=== PATIENT | female | born 1950 | race Caucasian/White ===

== ENCOUNTER 2018-08-02 06:43 | Inpatient (IN) | payer MEDICARE ==
[2018-08-02 07:30] LABS: Actual Bicarbonate (HCO3a) 23.5 mEq/L (22-28); Analyzer IN Cardio ER; Base Excess (BEa) -1.8 mEq/L (-2.0 to +3.0); CO2 Tension 42.1 mmHg (35.0-45.0); Calcium, Ionized 1.06 mmol/L (1.12-1.30); Carboxyhemoglobin (COHb) 0.7 gm% (0.0-3.0); Hemoglobin (Hb) 13.3 g/dL (12.0-16.0); O2 Tension (PaO2) 71.7 mmHg (> 80.0); Potassium - ABG Lab 3.09 mmol/L (3.70-5.30); Puncture Site LR; pH, Arterial 7.37 (7.35-7.45)
[2018-08-02 07:31] LABS: ALV-art Gradient 89.575 (0-20)
[2018-08-02] MEDS ORDERED: Furosemide 40 MG/4 ML VIAL ONE (07:52)
[2018-08-02] MEDS ORDERED: Aspirin Chewable 81 MG TAB ONE (07:52)
--- NOTE | 2018-08-02 08:52 | PDOC.FPRHP ---
- History of Present Illness Chief Complaint: Dyspnea History of Present Illness: Mrs. Candelaria presents for acute worsening of dyspnea starting yesterday She reports about 1 month of dyspnea worse with exertion, she also reports orthopnea and a non-productive cough. She denies any chest pain, palpitations, visual changes, syncope, or headache. She does not have a known history of heart disease. She reports a stress test and echo in the distant past that possibly indicated she had valve malfunction. She does smoke and has been told she has COPD but takes no inhalers and requires no O2. She has no known hx of blood clots, has not been immobile for any long period of time recently. no sick contacts or fever at home ED Course: CBC, CMP, CXR, Trop outside ER KCl given, placed on bipap, txferd here. Asa and furosemide given - Allergies/Adverse Reactions Allergies Allergy/AdvReac Type Severity Reaction Status Date / Time Jcdivjn-Glk-Qnj Reductase Allergy Verified 08/02/18 11:10 Inhibitor - Home Medications Medication Instructions Recorded Confirmed Type Cinnamon Bark [Cinnamon] 2,000 mg PO DAILY 06/21/14 12/23/14 History FLUoxetine HCl [Prozac] 40 mg PO DAILY 06/21/14 08/02/18 History HYDROcodone Bit/APAP 10/325 [[place]] 2 tab PO Q6HR PRN 06/21/14 12/23/14 History Hydrochlorothiazide 25 mg PO DAILY 06/21/14 12/23/14 History Lactobacillus 3/Fos/Pantethine 1 cap PO DAILY 06/21/14 12/23/14 History [Probiotic & Acidophilus Capsule] Lisinopril 20 mg PO DAILY 06/21/14 08/02/18 History Metoprolol Tartrate [Lopressor] 100 mg PO DAILY 06/21/14 12/23/14 History metFORMIN [Glucophage] 500 mg PO QAM-WM 06/21/14 08/02/18 History sitaGLIPtin Phosphate [Januvia] 25 mg PO DAILY 06/21/14 12/23/14 History Aspirin Chewable 81 mg PO DAILY 12/28/14 08/02/18 History Ciprofloxacin [Cipro] 500 mg PO BID 12/28/14 12/28/14 History Sulfamethoxazole/Trimethoprim 1 tab PO BID 12/28/14 12/28/14 History [Bactrim DS] Metoprolol Tartrate 25 mg PO ONE 08/02/18 08/02/18 History - History PMHx: HTN, DMII PSHx: Ovarian resection, associated hernia FHx: NC Social: 40+pk year smoking history, occ ETOH, no IV drugs - Review of Systems General: denies: fever/chills, weight/appetite/sleep changes Eyes: denies: eye pain, vision changes ENT: denies: rhinorrhea Respiratory: reports: cough, shortness of breath, exercise intolerance. denies : congestion Cardiovascular: reports: edema, orthopnea. denies: chest pain, palpitation, paroxysmal nocturnal dyspnea Gastrointestinal: reports: abdominal pain. denies: nausea, vomiting, diarrhea Genitourinary: denies: incontinence, dysuria Skin: denies: rashes, lesions Musculoskeletal: denies: pain, tenderness Neurological: reports: numbness. denies: syncope, weakness - Vital signs 118/77, Pulse: 124, Resp: 24, Temp: 98.1 (Oral), Pain: 0, O2 sat: 94 on Bipap - Physical Exam Constitutional: NAD HEENT: normocephalic and atraumatic, grossly normal vision, grossly normal hearing, MMM Neck: trachea midline Chest: no-tender to palpation, no lesions Heart: normal S1/S2, no murmurs/rubs/gallops, pulses present (tachycardia, edema present) Lungs: CTAB, no respiratory distress, good air movement, other (on bipap during exam) Abdomen: soft, non-tender, bowel sounds present, no masses/distention Musculoskeletal: normal structure, normal tone Neurological: no focal deficit Skin: no rash/lesions Psychiatric: normal mood and affect FMR H&P: Results - Labs Lab results: ABG pH 7.37 (7.35-7.45) 08/02/18 07:25 ABG pCO2 42.1 mmHg (35.0-45.0) 08/02/18 07:25 ABG pO2 71.7 mmHg (> 80.0) 08/02/18 07:25 FMR H&P: A/P - Problem List (1) Acute respiratory failure with hypoxia Current Visit: Yes Status: Acute Code(s): J96.01 - ACUTE RESPIRATORY FAILURE WITH HYPOXIA (2) Elevated brain natriuretic peptide (BNP) level Current Visit: Yes Status: Acute Code(s): R79.89 - OTHER SPECIFIED ABNORMAL FINDINGS OF BLOOD CHEMISTRY (3) Hypokalemia Current Visit: Yes Status: Acute Code(s): E87.6 - HYPOKALEMIA (4) HTN (hypertension) Current Visit: Yes Status: Acute Code(s): I10 - ESSENTIAL (PRIMARY) HYPERTENSION (5) DMII (diabetes mellitus, type 2) Current Visit: Yes Status: Acute (6) Transaminitis Current Visit: Yes Status: Acute Code(s): R74.0 - NONSPEC ELEV OF LEVELS OF TRANSAMNS & LACTIC ACID DEHYDRGNSE - Plan Acute hypoxic respiratory failure - tachycardia, tachypnea and hypoxia on presentation requiring BiPAP - normal WBC, afebrile, little concern for acute infection, most likely CHF exac w/ elevated bnp and cxr findings - consider PE, CTA to r/o, repeat EKG - continue respiratory support as needed, admit to IMCU - monitor ABG, Echo pending - IV lasix BID Transaminitis - consider cardiac hepatitis 2/2 volume overload - Hepatitis panel and RUQ pending DMII - continue home meds - mild SSI HTN - continue home meds - hydralazine for SBP>180 code: full PCP: OOT ppx: lovenox Dispo: admit to imcu for respiratory support, diurese. FMR H&P: Upper Level - Pertinent history 67F presents with 1 day of SOB. Started last night, has been constant. Symptom is exacerbated when laying flat, improved when she sat up. She tried an albuterol inhaler without improvement. Denies fever, chills, chest pain, nausea. Was worsening so she was seen in outside ER. There she had xray concerning for pulm congestion, elevated BNP. She was called a COPD exacerbation due to her smoking history, given solumedrol, normal saline, magnesium and potassium due to hypokalemia. She was transferred to this facility for further care. She was found to be tachycardic during this ER stay and outside ER stay, so a CTA was ordered and pending. She was given Lasix and aspirin here. She is currently on bipap and states she feels well. PE: Constitutional: On bipap, sitting up, well developed female. Animated talker HEENT:Normocephalic, wearing bipap, hearing and vision grossly intact, midline trachea CV: Regular, tachycardic, no obvious m/g/r Resp: No wheezes, good air movement. Faint crackles. No retraction or labored breathing. GI: Soft, normoactive, no pain on palpation Ext: 1+ pitting edema in both leg bilaterally to midshin A/P 1. Acute on chronic hypoxic respiratory failure - Etiologies include PE and CHF as most likely. - Patient been tachy, hypoxic with sudden onset. Has hx of malignancy. Plan, obtain d-dimer. - Xray and BNP suggest CHF. Will start on Lasix, obtain echo, consult card as this is apparently first CHF exacerbation. - At this time, not likely pneumonia. No fever, elevated WBC and sudden onset. Unlikely COPD at this time. No wheezes heard on exam. - Dispo, IMCU for continued bipap treatment. Wean as appropriate. 2. Elevated liver function - New issue noted today. Patient is asymptomatic. - Etiology includes congestion from CHF, viral, fatty liver, alcoholic liver. - Plan, obtain hepatitis panel, RUQ US 3. Tobacco abuse - Discuss cessation - Follow up with pcp for continued care. 4. Hypokalemia - K of 2.8. Unknown source right at this time. - Will start on 40 mEq potassium - Recheck CMP tomorrow. See international relations professor noted for chronic problem management. - Plan Date/Time: 08/02/18 0850 I, [], have evaluated this patient and agree with findings/plan as outlined by international relations professor resident. Pertinent changes/additions are listed here. Addendum - Attending - Attending Attestation Date/Time: 08/02/18 1019 I personally evaluated the patient and discussed the management with Dr. Bruno/ Eli at 0845 am. H&P repeated by me. I agree with the History, Examination, Assessment and Plan documented above with any addition or exceptions noted below. HR 120-130s, sinus, temp afebrile, O2 sat 98% on bipap, BP 124/76 Gen:A&Ox3, mild resp distress on bipap. is speaking in full sentences CV: tachycardia Lungs: crackles at bases. No wheezes or rhonchi Ext: 1+ pitting edema Labs and imaging reviewed. Acute hypoxic respiratory failure secondary to presumed CHF exac- BIPAP and to IMCU. Will check ECHO as new onset CHF. Lasix, strict I/Os, daily weights. Tachycardia- CTA done to r/o PE and it was negative. Most likely sinus tachy from heart failure. Will watch closely HTN- bp stable Elevated liver function- will check hepatitis panel and RUQ u/s. Most likely hepatic congestion from CHF. Hypokalemia-replace
[2018-08-02] MEDS ORDERED: Dextrose 50% Abboject 50 ML SYRINGE SLOW IVP PRN (09:33)
[2018-08-02] MEDS ORDERED: Dextrose 5% in Water 1,000 ML IV PRN (09:33)
[2018-08-02] MEDS ORDERED: HumaLOG 300 UNITS/3 ML VIAL SC PRN (09:33)
[2018-08-02] MEDS ORDERED: Ondansetron ODT 4 MG TAB PO PRN (09:33)
[2018-08-02] MEDS ORDERED: Ondansetron PF 4 MG/2 ML Vial IVP PRN (09:33)
[2018-08-02] MEDS ORDERED: Acetaminophen 325 MG TAB PO PRN (09:33)
--- NOTE | 2018-08-02 09:38 | CT ---
EXAM: CTA of the chest HISTORY: Shortness of breath COMPARISON: None TECHNIQUE: Multiple contiguous axial images were obtained a CTA of the chest with contrast per pulmon nilam embolism protocol. 3-D oblique MIP reformats and direct coronal reformats were performed. FINDINGS: HEART: Global cardiomegaly. Calcifications in the mitral and aortic valve. Coronary artery calcificat ions. PULMONARY ARTERIES: Normal in caliber without filling defects to suggest pulmonary emboli. MEDIASTINUM: No hilar or mediastinal lymphadenopathy. LUNGS: No focal infiltrates or masses. PLEURAL SPACE: Small bilateral pleural effusions with adjacent atelectasis CHEST WALL SOFT TISSUES: Unremarkable VISUALIZED OSSEOUS STRUCTURES: Degenerative changes in the spine. VISUALIZED SUBDIAPHRAGMATIC STRUCTURES: Unremarkable IMPRESSION: 1. No evidence of pulmonary thromboembolism 2. Small bilateral pleural effusions with adjacent atelectasis
[2018-08-02 10:05] LABS: Troponin I 0.043 ng/mL (< 0.028)
[2018-08-02 11:11] VITALS: BMI 29.5
[2018-08-02] MEDS ORDERED: Metoprolol Tartrate 25 MG TAB PO SCH (12:45)
--- NOTE | 2018-08-02 13:36 | ULT ---
US Gallbladder RUQ: 08/02/2018 9:41 AM CLINICAL HISTORY: Elevated LFTs. STUDY: Limited right upper quadrant ultrasound of abdomen. COMPARISON: None. FINDINGS: Liver: Size: Normal. Echogenicity: Normal. Contour: Smooth. Mass: None. Bile ducts: No intrahepatic or extrahepatic biliary dilatation. Common bile duct measures 7 mm. Thi s enlargement is likely a reservoir effect from prior cholecystectomy. Gallbladder: Removed Pancreas: Not well visualized Right kidney: No pelvicalyceal dilatation. Right kidney measuring 11.7 cm in length. IMPRESSION: Enlargement of the common bile duct is likely a reservoir effect from prior cholecystectomy.
[2018-08-02 13:57] LABS: HBSAg Index 0.29 S/CO (0-0.99); Hep B Surf Ag Non-Reactive S/CO (NonReactive); Hep C IgG Ab Non-Reactive (NonReactive); Hep C Index 0.06 S/CO (0-0.79)
[2018-08-02] MEDS ORDERED: Furosemide 20 MG/2 ML VIAL SLOW IVP SCH (14:00)
[2018-08-02 14:01] LABS: Troponin I 0.035 ng/mL (< 0.028)
[2018-08-02] MEDS ORDERED: predniSONE 20 MG TAB PO SCH (14:15)
--- NOTE | 2018-08-02 14:38 | CON ---
DATE OF CONSULTATION: 08/02/2018 SERVICE: Pulmonary Medicine. REASON FOR CONSULTATION: [facility] patient. HISTORY OF PRESENT ILLNESS: The patient is a 67-year-old white female with past medical history significant for a 45 pack-year history of smoking and hypertension with diabetes. She presented to the hospital. All of her problems started roughly 1 week ago. At that point, she noticed a tickle in her throat with a little bit of a cough. Over the last 2 days, she started having dyspnea with exertion. She first noticed it when she went to the [employer] and had a difficult time walking around. The attendants there suggested that she look very poor and needed to get home to get some rest. She took their advice, got some rest. That evening, she ended up waking up in the middle of night short of breath and choking. She presented to the emergency department because of dyspnea. She was wheezing severely. She got a dose of Lasix and a nebulized medication. After that dose of nebulized medication, her breathing immediately got better. She was transiently placed on BiPAP, but since the breathing treatment, she has had no need for it. She does not wear any oxygen at home, but required oxygen on presentation to the emergency department. At this point, she is talking in full sentences, and there is no complaints of dyspnea. PAST MEDICAL HISTORY: 1. Hypertension. 2. Dyslipidemia. 3. Type 2 diabetes mellitus. 4. Tobacco abuse. PAST SURGICAL HISTORY: Ovarian resection. FAMILY HISTORY: Noncontributory. SOCIAL HISTORY: She has a 45 pack-year history of smoking. Denies any alcohol or illicit drug use currently. She has no exposure to chemicals, dust, asbestos, or tuberculosis. ALLERGIES: NO KNOWN DRUG ALLERGIES. MEDICATIONS: List of her inpatient medications were reviewed. Couple of updates were made. REVIEW OF SYSTEMS: General; head, eyes, ears, nose, and throat; cardiovascular, respiratory, GI, , musculoskeletal, neurologic, and skin are negative, except as mentioned in the HPI. PHYSICAL EXAMINATION: VITAL SIGNS: Afebrile, pulse 125, blood pressure 119/86, respirations 25, saturation 96% on 0.5 L nasal cannula. GENERAL: The patient is awake and alert, in no apparent distress. LUNGS: There is decent air entry. There is slightly prolonged expiratory phase. Currently, I do not appreciate any wheezing. There are also no crackles there now. HEART: Normal rate and regular. ABDOMEN: Soft, nontender, nondistended. Bowel sounds are positive. MUSCULOSKELETAL: No cyanosis or clubbing. There is trace pitting in the bilateral lower extremities. NEUROLOGIC: Grossly nonfocal. LABORATORY DATA: PH of 7.37, pCO2 of 42, pO2 of 71. At that time, she was on BiPAP. Troponin is marginally elevated. WBC 11.4, hemoglobin 12.8, and platelets 259,000. Basic metabolic profile is otherwise unremarkable. Potassium 2.8. Otherwise basic metabolic profile is unremarkable. AST and ALT are elevated. BNP 493. IMAGING STUDIES: CTA of the chest demonstrates bilateral pleural effusions, which are quite small. There is interstitial fullness. She has no consolidating or infiltrative lesions. There is no pulmonary embolism. Abdominal ultrasound demonstrates no acute abnormality. The common bile duct measures 7 mm, likely secondary to cholecystectomy. ASSESSMENT: 1. Acute bronchitis, suspect COPD. 2. Acute hypoxic respiratory failure. 3. Elevated BNP. DISCUSSION AND PLAN: We will check the synthetic function of the liver by obtaining an INR tomorrow morning. Total bilirubin is normal making liver dysfunction unlikely. I will get a urinalysis, excluding nephrotic range proteinuria. Agree with echocardiogram. For her mild bronchitis, put her on 5 days of low-dose prednisone. If she has any signs of sepsis, we could add an antibiotic. Respiratory virus panel will be obtained. At this point, she is stable for transition to the telemetry unit. 70 minutes have been devoted to this patient in various activities. I personally reviewed all imaging studies and laboratory data noted within this document. For fifty percent of this time, I was interacting with the patient at the bedside or coordinating care with the care team. For the remainder of the time I was immediately available to the patient in the hospital unit. Job ID: [id number] MTDD
[2018-08-02] MEDS: HYDROcodone/Acetaminophen 5/325 mg Tablet PO PRN (15:53)
[2018-08-02] MEDS ORDERED: ISOVUE-370 76%-LOCM 1 ML ONE (16:05)
[2018-08-02 18:01] LABS: Bilirubin Negative (Negative); Blood, Urine Negative (Negative); Clarity CLEAR (Clear); Glucose, Urine (Dipstick) Negative (Negative); Leukocyte Negative (Negative); Nitrite Negative (Negative); Protein, Urine (Dipstick) Negative (Neg-Trace); Specific Gravity, Urine 1.008 (1.002-1.036); Urobilinogen 0.2 mg/dL (0.2-1.0)
[2018-08-02 18:13] LABS: Amphetamine Not Detected (NotDetected); Barbiturates Screen Not Detected (NotDetected); Benzodiazepine Screen Not Detected (NotDetected); Cocaine Metabolite Screen Not Detected (NotDetected); Medtox Reader # READER 1; Methadone Not Detected (NotDetected); Methamphetamine Not Detected (NotDetected); Opiate Screen Detected (NotDetected); Oxycodone Screen Not Detected (NotDetected); Phencyclidine (PCP) Not Detected (NotDetected); THC/Cannabinoid Screen Not Detected (NotDetected); Tricyclic Screen Detected (NotDetected)
[2018-08-02 18:14] LABS: Medtox Control Line Valid? VALID (VALID)
[2018-08-02] MEDS: Metoprolol Tartrate 25 MG TAB PO SCH (20:12)
[2018-08-03] MEDS: HYDROcodone/Acetaminophen 5/325 mg Tablet PO PRN ×2 (04:05→16:54)
[2018-08-03 05:33] LABS: #Lymphocytes 1.5 thou/uL (1.20-3.40); #Monocytes 0.9 thou/uL (0.11-0.59); #Neutrophils 8.2 thou/uL (1.40-6.50); %Basophils 0.1 % (0.0-1.0); %Eosinophils 0.2 % (0.0-10.0); %Lymphocytes 14.2 % (21.0-51.0); %Monocytes 8.3 % (0.0-10.0); %Neutrophils 77.2 % (42.0-75.0); Hemoglobin 12.5 g/dL (12.0-16.0); Mean Corpuscular HGB CONC 32.5 g/dL (32.0-36.0); Mean Corpuscular Volume 98.5 fL (78.0-98.0); Mean Platelet Volume 6.8 fL (7.4-10.4); Platelet Count 269 thou/uL (130-400); RBC Distribution Width 12.4 % (11.5-14.5); White Blood Cell (WBC) Count 10.6 thou/uL (4.8-10.8)
[2018-08-03 05:41] LABS: Prothrombin Time 13.2 SEC (12.0-14.7)
[2018-08-03 06:09] LABS: ALT (SGPT) 121 U/L (8-55); AST (SGOT) 48 U/L (5-34); Albumin 3.8 g/dL (3.4-4.8); Alkaline Phosphatase 103 U/L (40-150); Anion Gap 11 mmol/L (10-20); BUN (Urea Nitrogen) 12 mg/dL (9.8-20.1); Bilirubin, Total 0.4 mg/dL (0.2-1.2); Calc. Creatinine Clearance 106 mL/min (70-130); Calcium 8.9 mg/dL (7.8-10.44); Carbon Dioxide 34 mmol/L (23-31); Chloride 98 mmol/L (98-107); Estimated GFR-MDRD 88; Glucose 127 mg/dL (80-115); Potassium 3.8 mmol/L (3.5-5.1); Protein, Total 6.8 g/dL (6.0-8.3); Sodium 139 mmol/L (136-145)
--- NOTE | 2018-08-03 06:46 | PDOC.FM ---
- Subjective Subjective: pt sitting comfortably on the side of her bed, enjoying breakfast, she reports her shortness of breath has improved. denies chest pain or dizziness. - Objective Vital Signs & Weight: Vital Signs (12 hours) Temp Pulse Resp Pulse Ox 08/03/18 06:37 94 L 08/03/18 06:35 114 H 17 94 L 08/03/18 03:00 98.0 F 08/03/18 00:24 114 H 18 94 L 08/02/18 23:04 97.7 F 08/02/18 20:00 94 L 08/02/18 19:00 98.5 F 08/02/18 18:44 123 H 18 94 L Weight Weight 80.428 kg Most Recent Monitor Data Heart Rate from ECG 117 NIBP 110/83 NIBP BP-Mean 92 Respiration from ECG 19 SpO2 90 I&O: 08/01/18 08/02/18 08/03/18 06:59 06:59 06:59 Intake Total 1350 Output Total 2800 Balance -1450 Result Diagrams: 08/03/18 05:23 08/03/18 05:23 Phys Exam - Physical Examination Constitutional: NAD HEENT: moist MMs Neck: full ROM crackles at base PILAR Gastrointestinal: no distention Musculoskeletal: no edema Neurological: moves all 4 limbs Psychiatric: normal affect Skin: no rash Dx/Plan (1) Acute respiratory failure with hypoxia Code(s): J96.01 - ACUTE RESPIRATORY FAILURE WITH HYPOXIA Status: Acute (2) Elevated brain natriuretic peptide (BNP) level Code(s): R79.89 - OTHER SPECIFIED ABNORMAL FINDINGS OF BLOOD CHEMISTRY Status : Acute (3) Hypokalemia Code(s): E87.6 - HYPOKALEMIA Status: Acute (4) HTN (hypertension) Code(s): I10 - ESSENTIAL (PRIMARY) HYPERTENSION Status: Acute (5) DMII (diabetes mellitus, type 2) Status: Acute (6) Transaminitis Code(s): R74.0 - NONSPEC ELEV OF LEVELS OF TRANSAMNS & LACTIC ACID DEHYDRGNSE Status: Acute - Plan Plan: Acute hypoxic respiratory failure - tachycardia, tachypnea and hypoxia on presentation requiring BiPAP - normal WBC, afebrile, little concern for acute infection, most likely CHF exac w/ elevated bnp and cxr findings, - requiring intermitent O2 via NC for 24 hrs, transfer to tele - Echo pending - consult cardiology, appreciate recs - IV lasix BID Transaminitis - consider hepatic congestion 2/2 volume overload - Hepatitis panel neg and RUQ neg for cirrhosis - AST/ALT downtrending DMII - continue home meds - mild SSI Sinus Tachycardia - EKG does not reveal afib or block, no ST changes - CTA neg - consider DCing metoprolol, beginning coreg HTN - continue home meds - hydralazine for SBP>180 code: full PCP: OOT ppx: lovenox Dispo: continue to diurese, control HR. Addendum - Attending - Attending Attestation Date/Time: 08/03/18 1032 I personally evaluated the patient and discussed the management with Dr. Bruno. I agree with the History, Examination, Assessment and Plan documented above with any addition or exceptions noted below. Patient here with acute hypoxic respiratory failure that is now improved. Suspected due to possible new onset HF. Echo pending, and cardiology consulted. She has been weaned down to 1L by SD and will continue to wean as tolerated. She is persistently tachycardic, which apparently is chronic in nature. Consider high output heart failure and dilated cardiomyopathy given this history but will await Echo report and Cardiology recs.
[2018-08-03] MEDS ORDERED: Enoxaparin Sodium 40 MG/0.4 ML SYRINGE SC SCH (09:00)
[2018-08-03] MEDS: metFORMIN 500 MG TAB PO SCH (09:35)
[2018-08-03] MEDS: predniSONE 20 MG TAB PO SCH (09:35)
[2018-08-03] MEDS: Furosemide 20 MG/2 ML VIAL SLOW IVP SCH (09:36)
[2018-08-03] MEDS: Aspirin Chewable 81 MG TAB PO SCH (09:36)
[2018-08-03] MEDS: Lisinopril 20 MG TAB PO SCH (09:36)
[2018-08-03] MEDS: FLUoxetine HCl 20 MG CAP PO SCH (09:36)
[2018-08-03] MEDS: Metoprolol Tartrate 25 MG TAB PO SCH (09:37)
--- NOTE | 2018-08-03 10:40 | PRG ---
DATE OF SERVICE: 08/03/2018 SUBJECTIVE: Stephany Candelaria this morning awake, alert, and responsive. She says she is feeling somewhat better. Less short of breath. OBJECTIVE: VITAL SIGNS: Sats are 96% on 1 L, pulse 120, blood pressure 98/73, respiratory rate 24. CHEST: Decreased breath sounds. No wheezing. CARDIAC: Normal S1 and S2. No gallops. ABDOMEN: No masses. LABORATORY DATA: Unremarkable. Liver function slightly elevated. CT chest shows no obvious infiltrates. IMPRESSION: 1. Chronic obstructive pulmonary disease, respiratory failure. 2. Congestive heart failure. PLAN: Continue present treatment. Await results of the echo. We want to consider input from Cardiology. Job ID: [id number]
--- NOTE | 2018-08-03 10:53 | CON ---
DATE OF CONSULTATION: REASON FOR CONSULTATION: Cardiomyopathy. HISTORY OF PRESENT ILLNESS: Ms. Candelaria is a 67-year-old woman, who has not been seen or evaluated by Cardiology recently. She presented with a 1-2 day history of acute onset shortness of breath. She has had lower extremity edema. She presented at an outlying emergency room, where she was found to be in congestive heart failure. She was given Lasix with improvement. She is currently resting comfortably. CARDIAC RISK FACTORS: Hypertension, hyperlipidemia, diabetes mellitus, tobacco use. SOCIAL HISTORY: As above. She is currently . ALLERGIES: NONE. REVIEW OF SYSTEMS: A 10-point review of systems is reviewed and as above, otherwise negative. HOME MEDICATIONS: Include: 1. Metoprolol. 2. Aspirin. 3. Metformin. 4. Lisinopril. 5. Prozac. 6. Januvia. 7. Bactrim. 8. Lopressor. 9. Probiotic. 10. Cipro. PHYSICAL EXAMINATION: GENERAL: Patient is a pleasant female who is in no acute distress. The patient appears their stated age. VITAL SIGNS: Blood pressure 98/73, pulse 96, temperature afebrile. NEUROLOGIC: The patient is alert and oriented x3 with no focal neurologic deficits. HEENT: Sclerae without icterus. Mouth has moist mucous membranes with normal pallor. NECK: No JVD. Carotid upstroke brisk. No bruits bilaterally. LUNGS: Crackles noted bilaterally. BACK: No scoliosis or kyphosis. CARDIAC: Regular rate and rhythm with normal S1 and S2. No S3 or S4 noted. No significant rubs, murmurs, thrills, or gallops noted throughout the precordium. PMI is not displaced. There is no parasternal heave. ABDOMEN: Soft, nontender, nondistended. No peritoneal signs present. No hepatosplenomegaly. No abnormal striae. EXTREMITIES: 2+ femoral and 2+ dorsalis pedis pulses. No cyanosis, clubbing, or edema. SKIN: No gross abnormalities. PERTINENT LABORATORY DATA: Hemoglobin 12.5, creatinine 0.67, peak troponin 0.043. AST, ALT 48/121. Echo with doppler shows LVEF 25% to 30%. IMPRESSION: 1. Acute systolic heart failure. 2. Tobacco abuse. 3. Diabetes mellitus. 4. Hypertension. RECOMMENDATIONS: Ms. Candelaria certainly has multiple risk factors for underlying coronary disease as described above. She is felt to be a high risk. At this point, recommend continuing Lasix therapy. We will also recommend proceeding with coronary angiography plus PCI, discussed in full detail with Ms. Candelaria. The risks included but not limited to the following: , stroke, ID, need for emergency surgery, loss of limb, bleeding, and infection, as well as a reaction to the dye causing kidney failure and needing long-term dialysis. Other risks include acute stent thrombosis and restenosis, vessel dissection, perforation, need for emergency surgery in addition to distal embolization causing chronic foot discomfort as well as amputation. All questions answered. I also discussed drug-coated and nondrug-coated stent placement. She states she can be compliant with Plavix over six months if needed. No surgeries planned, back injections could be compliant. No bleeding issues. We will proceed with a drug-coated stent if needed. I would recommend changing metoprolol to low-dose Coreg. Increase Lasix to 40 mg IV. Further recommendations pending the above. Job ID: [id number]
[2018-08-03] MEDS: HumaLOG 300 UNITS/3 ML VIAL SC PRN (11:19)
[2018-08-03] MEDS ORDERED: Furosemide 40 MG/4 ML VIAL IVP SCH (13:00)
[2018-08-03] MEDS: Carvedilol 3.125 MG TAB PO SCH (16:54)
[2018-08-04] MEDS ORDERED: Diltiazem 125 MG in Sodium Chloride 0.9% 100 ML IVPB SCH ×2 (05:15→08:30)
[2018-08-04] MEDS ORDERED: Metoprolol Tartrate 5 MG/5 ML VIAL IVP PRN (05:18)
[2018-08-04] MEDS ORDERED: Metoprolol Tartrate 5 MG/5 ML VIAL ONE (05:57)
[2018-08-04] MEDS ORDERED: Digoxin 0.5 MG/2 ML AMP SLOW IVP SCH (06:15)
[2018-08-04] MEDS ORDERED: Sodium Chloride 0.9% 1,000 ML IV SCH (06:45)
[2018-08-04] MEDS ORDERED: Communication Order-Pharmacy FS SCH (06:45)
[2018-08-04] MEDS: metFORMIN 500 MG TAB PO SCH ×2 (07:21→09:08)
--- NOTE | 2018-08-04 07:36 | PDOC.FM ---
- Subjective Subjective: pt resting comfortably in bed, reported afib w/ rvr overnight, asymptomatic. continues to deny chest pain, palpitations, or SOB. - Objective Vital Signs & Weight: Vital Signs (12 hours) Temp Pulse Resp BP BP Pulse Ox 08/04/18 07:26 119 H 20 96 08/04/18 07:16 98.6 F 122 H 18 129/85 96 08/04/18 06:16 126 H 08/04/18 03:13 98.5 F 126 H 19 121/86 92 L 08/03/18 23:24 123 H 20 08/03/18 19:53 98.4 F 102 H 18 107/63 93 L Weight Admit Weight 80.286 kg Weight 79.56 kg Most Recent Monitor Data Heart Rate from ECG 125 NIBP 100/53 NIBP BP-Mean 68 Respiration from ECG 20 SpO2 95 I&O: 08/03/18 08/04/18 08/05/18 06:59 06:59 06:59 Intake Total 1350 1200 Output Total 2800 Balance -1450 1200 Result Diagrams: 08/03/18 05:23 08/03/18 05:23 Phys Exam - Physical Examination Constitutional: NAD HEENT: moist MMs Neck: no JVD Respiratory: clear to auscultation bilateral Cardiovascular: no significant murmur, irregular (irregularly irregular ) Gastrointestinal: soft, non-tender Musculoskeletal: no edema, pulses present Neurological: moves all 4 limbs Psychiatric: normal affect Skin: no rash Dx/Plan (1) Acute respiratory failure with hypoxia Code(s): J96.01 - ACUTE RESPIRATORY FAILURE WITH HYPOXIA Status: Acute (2) Elevated brain natriuretic peptide (BNP) level Code(s): R79.89 - OTHER SPECIFIED ABNORMAL FINDINGS OF BLOOD CHEMISTRY Status : Acute (3) Hypokalemia Code(s): E87.6 - HYPOKALEMIA Status: Acute (4) HTN (hypertension) Code(s): I10 - ESSENTIAL (PRIMARY) HYPERTENSION Status: Acute (5) DMII (diabetes mellitus, type 2) Status: Acute (6) Transaminitis Code(s): R74.0 - NONSPEC ELEV OF LEVELS OF TRANSAMNS & LACTIC ACID DEHYDRGNSE Status: Acute - Plan Plan: Acute hypoxic respiratory failure - tachycardia, tachypnea and hypoxia on presentation requiring BiPAP - normal WBC, afebrile, little concern for acute infection, most likely CHF exac w/ elevated bnp and cxr findings, - requiring intermitent O2 via NC for 24 hrs, transfer to tele - Echo shows EF 25-30% - consult cardiology, appreciate recs - IV lasix BID, cath today Transaminitis - consider hepatic congestion 2/2 volume overload - Hepatitis panel neg and RUQ neg for cirrhosis - AST/ALT downtrending DMII - continue home meds - mild SSI Atrial fibrillation - w/ RVR overnight, possibly paroxysmal, no known history - CTA neg, Echo reveals dilated atria - increase coreg, IV dig for RVR - discuss OAC w/ pt after cath HTN - continue home meds - hydralazine for SBP>180 code: full PCP: [facility]ISA ppx: caleb Dispo: cath today Addendum - Attending - Attending Attestation Date/Time: 08/04/18 1101 I personally evaluated the patient and discussed the management with Dr. Bruno. I agree with the History, Examination, Assessment and Plan documented above with any addition or exceptions noted below. Patient here with now known diagnosis of CHFrEF and Afib. Echo shows poor EF and dilated LA. She is to undergo cath with cardiology at some point. Appreciate their recs. Continue diltiazem for Afib rate control at this time. Continue diuresis. Wean O2 as tolerated. Further mgmt per cath result and cardiology recs.
[2018-08-04] MEDS ORDERED: Heparin 10,000 UNITS/1 ML VIAL ONE (07:46)
[2018-08-04] MEDS ORDERED: Nitroglycerin 100MG/250ML BOT 0 ML ONE (07:46)
[2018-08-04] MEDS ORDERED: Heparin 0 ML ONE (07:46)
[2018-08-04] MEDS: Carvedilol 3.125 MG TAB PO SCH ×2 (08:54→16:40)
[2018-08-04] MEDS: Furosemide 20 MG/2 ML VIAL SLOW IVP SCH (08:55)
[2018-08-04] MEDS: FLUoxetine HCl 20 MG CAP PO SCH (08:55)
[2018-08-04] MEDS: predniSONE 20 MG TAB PO SCH (08:55)
[2018-08-04] MEDS: Furosemide 40 MG TAB PO SCH ×2 (08:55→13:17)
[2018-08-04] MEDS: Aspirin Chewable 81 MG TAB PO SCH (08:55)
[2018-08-04] MEDS: Lisinopril 20 MG TAB PO SCH (08:55)
[2018-08-04] MEDS: HYDROcodone/Acetaminophen 5/325 mg Tablet PO PRN (16:38)
--- NOTE | 2018-08-04 16:47 | EKG ---
Test Reason : Blood Pressure : / mmHG Vent. Rate : 129 BPM Atrial Rate : 067 BPM P-R Int : 000 ms QRS Dur : 084 ms QT Int : 392 ms P-R-T Axes : 000 066 090 degrees QTc Int : 574 ms Accelerated Junctional rhythm Abnormal ECG When compared with ECG of 23-DEC-2014 13:51, Junctional rhythm has replaced Sinus rhythm Vent. rate has increased BY 54 BPM Non-specific change in ST segment in Anterior leads T wave inversion no longer evident in Anterior leads Confirmed by DR. Jace BROWN ([id number]) on 08/04/2018 4:46:53 PM Referred By: MARNI Confirmed By:DR. Jace BROWN
[2018-08-04] MEDS: HumaLOG 300 UNITS/3 ML VIAL SC PRN (17:34)
[2018-08-04] MEDS ORDERED: Amiodarone 200 MG TAB PO SCH (21:00)
[2018-08-05] MEDS ORDERED: Diltiazem 125 MG in Sodium Chloride 0.9% 100 ML IVPB SCH ×2 (06:33→10:00)
--- NOTE | 2018-08-05 06:33 | PDOC.CTH ---
Cardiology Progress Note - Objective Vital Signs Temp Pulse Resp BP Pulse Ox 08/05/18 04:00 98.8 F 103 H 18 103/51 L 93 L 08/05/18 02:18 95 08/05/18 00:21 113 H 16 08/05/18 00:00 98.4 F 94 18 133/81 94 L 08/04/18 21:30 98.2 F 110 H 18 116/67 92 L 08/04/18 19:02 94 16 84 L Admit Weight 177 lb Weight 171 lb 1.6 oz 08/03/18 08/04/18 08/05/18 06:59 06:59 06:59 Intake Total 1350 1200 1900 Output Total 2800 Balance -1450 1200 1900 - Physical Examination General/Neuro: alert & oriented x3, NAD Neck: carotid US brisk, no JVD present Lungs: unlabored respirations Heart: RRR Abdomen: NT/ND, soft Extremities: + femoral B - Telemetry Telemetry Rhythm: sr - Labs Result Diagrams: 08/03/18 05:23 08/03/18 05:23 Troponin/CKMB Troponin I 0.035 ng/mL (< 0.028) H 08/02/18 13:09 - Assessment/Plan Afib Tachycardia Hyperthyroidism Initial plan was to proceed with angio Given hyperthyroidism, aggressively treat with BB Pt continues with tachycardia Concern over thyroid storm reported in past with use of contrast in the face ofhyperthyroidism lifevest
[2018-08-05] MEDS: FLUoxetine HCl 20 MG CAP PO SCH (06:35)
[2018-08-05] MEDS: predniSONE 20 MG TAB PO SCH (06:35)
[2018-08-05] MEDS: Aspirin Chewable 81 MG TAB PO SCH (06:36)
[2018-08-05] MEDS: Lisinopril 20 MG TAB PO SCH (06:36)
[2018-08-05] MEDS: Carvedilol 6.25 MG TAB PO SCH ×3 (06:39→20:01)
--- NOTE | 2018-08-05 07:00 | PDOC.FM ---
- Subjective Subjective: pt taken for cath this morning, no reported events overnight. - Objective Vital Signs & Weight: Vital Signs (12 hours) Temp Pulse Resp BP Pulse Ox 08/05/18 04:00 98.8 F 103 H 18 103/51 L 93 L 08/05/18 02:18 95 08/05/18 00:21 113 H 16 08/05/18 00:00 98.4 F 94 18 133/81 94 L 08/04/18 21:30 98.2 F 110 H 18 116/67 92 L 08/04/18 19:02 94 16 84 L Weight Admit Weight 80.286 kg Weight 77.61 kg Most Recent Monitor Data Heart Rate from ECG 125 NIBP 100/53 NIBP BP-Mean 68 Respiration from ECG 20 SpO2 95 I&O: 08/03/18 08/04/18 08/05/18 06:59 06:59 06:59 Intake Total 1350 1200 1900 Output Total 2800 Balance -1450 1200 1900 Result Diagrams: 08/03/18 05:23 08/03/18 05:23 Dx/Plan (1) Acute respiratory failure with hypoxia Code(s): J96.01 - ACUTE RESPIRATORY FAILURE WITH HYPOXIA Status: Acute (2) Elevated brain natriuretic peptide (BNP) level Code(s): R79.89 - OTHER SPECIFIED ABNORMAL FINDINGS OF BLOOD CHEMISTRY Status : Acute (3) Hypokalemia Code(s): E87.6 - HYPOKALEMIA Status: Acute (4) HTN (hypertension) Code(s): I10 - ESSENTIAL (PRIMARY) HYPERTENSION Status: Acute (5) DMII (diabetes mellitus, type 2) Status: Acute (6) Transaminitis Code(s): R74.0 - NONSPEC ELEV OF LEVELS OF TRANSAMNS & LACTIC ACID DEHYDRGNSE Status: Acute - Plan Plan: Acute hypoxic respiratory failure - tachycardia, tachypnea and hypoxia on presentation requiring BiPAP - normal WBC, afebrile, little concern for acute infection, most likely CHF exac w/ elevated bnp and cxr findings - requiring intermittent O2 via NC - Echo shows EF 25-30% - consult cardiology, appreciate recs - IV lasix BID, cath today Transaminitis - consider hepatic congestion 2/2 volume overload - Hepatitis panel neg and RUQ neg for cirrhosis - AST/ALT downtrending DMII - continue home meds - mild SSI Atrial fibrillation - w/ intermittent RVR, possibly paroxysmal, no known history - CTA neg, Echo reveals dilated atria - increase coreg - discuss OAC w/ pt after cath Low TSH - normal T4, T3 pending - increased BB dose HTN - continue home meds - hydralazine for SBP>180 code: full PCP: [facility] ppx: caleb Dispo: cath today Addendum - Attending - Attending Attestation Date/Time: 08/05/18 1100 I personally evaluated the patient and discussed the management with Dr. Bruno. I agree with the History, Examination, Assessment and Plan documented above with any addition or exceptions noted below. Patient here for new onset sCHF and pAfib. She continues to require Dilt despite escalation in BB therapy. Awaiting further cardiology recs but she has also beenn started on amiodarone. She had her heart cath cancelled this morning due to concern for hyperthyroidim, which her current labs do not support the diagnosis. Awaiting to ensure T3 is normal before clarifying with cardiology. Will discuss and coordinate with them to see if cath is still in the future plans. Will need HF and CAD meds prior to discharge. Wean from O2 as tolerated.
[2018-08-05] MEDS ORDERED: Fentanyl 100 MCG/2 ML VIAL ONE (07:17)
[2018-08-05] MEDS ORDERED: Midazolam HCl 2 mg/2 ml Vial ONE (07:17)
[2018-08-05] MEDS ORDERED: Carvedilol 6.25 MG TAB PO SCH (08:00)
[2018-08-05] MEDS: Furosemide 20 MG/2 ML VIAL SLOW IVP SCH (10:08)
[2018-08-05] MEDS: metFORMIN 500 MG TAB PO SCH (10:11)
[2018-08-05] MEDS: Furosemide 40 MG TAB PO SCH (10:11)
--- NOTE | 2018-08-05 11:16 | PRG ---
DATE OF SERVICE: 08/05/2018 SERVICE: Pulmonary Medicine. INTERVAL HISTORY: The patient is doing fine from respiratory standpoint. She has been weaned down to room air. She denies any cough, fevers, chills, or shortness of breath. She just got back from a cardiac catheterization. She is not quite certain what the results were. She is coughing, but not bringing up any sputum at this time. PHYSICAL EXAMINATION: VITAL SIGNS: Afebrile, pulse 103, blood pressure is 103/51, respirations 18, and saturation 93% on room air. GENERAL: The patient is awake and alert, in no apparent distress. LUNGS: There is a reduced air entry and a slightly prolonged expiratory phase. No dependent crackles or wheezing appreciated. HEART: Normal rate. Regular. ABDOMEN: Soft, nontender, and nondistended. Bowel sounds are positive. MUSCULOSKELETAL: No cyanosis or clubbing. There is no pitting in the bilateral lower extremities. NEUROLOGIC: Grossly nonfocal. LABORATORY DATA: Free T4 of 1.07 and TSH 0.3. Urinalysis is negative for any significant proteinuria. Respiratory virus panel is unremarkable. ASSESSMENT: 1. Acute hypoxic respiratory failure, resolving. 2. Acute systolic heart failure. 3. Severe mitral regurgitation. 4. Chronic obstructive pulmonary disease, suspected. DISCUSSION AND PLAN: The patient is doing really well from respiratory standpoint. At this point, I will follow intermittently while she remains in-house. Heart workup clearly takes precedence. She has returned to euvolemia. As such, we should back off of the Lasix to once daily. Pulmonary/Critical Care will continue to follow along. Job ID: [id number] MTDD
[2018-08-05] MEDS: HYDROcodone/Acetaminophen 5/325 mg Tablet PO PRN (15:21)
[2018-08-05] MEDS ORDERED: Communication Order-Pharmacy FS SCH (17:30)
[2018-08-06] MEDS ORDERED: Sodium Chloride 0.9% 1,000 ML IV SCH ×2 (06:00→09:00)
[2018-08-06] MEDS: Carvedilol 6.25 MG TAB PO SCH ×3 (06:12→21:36)
[2018-08-06] MEDS: Lisinopril 20 MG TAB PO SCH (06:14)
--- NOTE | 2018-08-06 06:36 | PDOC.FM ---
- Subjective Subjective: pt resting comfortably in bed, no chest pain, SOB improved - Objective Vital Signs & Weight: Vital Signs (12 hours) Temp Pulse Resp BP BP Pulse Ox 08/06/18 06:14 134/90 08/06/18 06:12 134/90 08/06/18 03:45 98 F 79 14 147/77 H 92 L 08/05/18 23:39 90 16 08/05/18 20:01 115/59 L 08/05/18 19:59 98.1 F 94 18 115/59 L 94 L 08/05/18 18:46 80 16 95 Weight Admit Weight 80.286 kg Weight 77.61 kg Most Recent Monitor Data Heart Rate from ECG 125 NIBP 100/53 NIBP BP-Mean 68 Respiration from ECG 20 SpO2 95 I&O: 08/04/18 08/05/18 08/06/18 06:59 06:59 06:59 Intake Total 1200 1900 1410 Balance 1200 1900 1410 Result Diagrams: 08/03/18 05:23 08/03/18 05:23 Phys Exam - Physical Examination HEENT: moist MMs Neck: full ROM Gastrointestinal: no distention Musculoskeletal: no edema Neurological: moves all 4 limbs Psychiatric: normal affect Skin: no rash Dx/Plan (1) Acute respiratory failure with hypoxia Code(s): J96.01 - ACUTE RESPIRATORY FAILURE WITH HYPOXIA Status: Acute (2) Elevated brain natriuretic peptide (BNP) level Code(s): R79.89 - OTHER SPECIFIED ABNORMAL FINDINGS OF BLOOD CHEMISTRY Status : Acute (3) Hypokalemia Code(s): E87.6 - HYPOKALEMIA Status: Acute (4) HTN (hypertension) Code(s): I10 - ESSENTIAL (PRIMARY) HYPERTENSION Status: Acute (5) DMII (diabetes mellitus, type 2) Status: Acute (6) Transaminitis Code(s): R74.0 - NONSPEC ELEV OF LEVELS OF TRANSAMNS & LACTIC ACID DEHYDRGNSE Status: Acute - Plan Plan: Acute hypoxic respiratory failure - tachycardia, tachypnea and hypoxia on presentation requiring BiPAP - normal WBC, afebrile, little concern for acute infection, most likely CHF exac w/ elevated bnp and cxr findings - requiring intermittent O2 via NC - Echo shows EF 25-30% - consult cardiology, appreciate recs - PO lasix qd, cath today Transaminitis - consider hepatic congestion 2/2 volume overload - Hepatitis panel neg and RUQ neg for cirrhosis - AST/ALT downtrending DMII - continue home meds - mild SSI Atrial fibrillation - w/ intermittent RVR, possibly paroxysmal, no known history - CTA neg, Echo reveals dilated atria - coreg TID - discuss OAC w/ pt after cath Low TSH - normal T4, T3. unlikely clinical hyperthyroidism HTN - continue home meds - hydralazine for SBP>180 code: full PCP: [facility] ppx: [facility] Dispo: cath today Addendum - Attending - Attending Attestation Date/Time: 08/06/18 1122 I personally evaluated the patient and discussed the management with Dr. Bruno. I agree with the History, Examination, Assessment and Plan documented above with any addition or exceptions noted below. Patient feels well this morning post cath. Awaiting reports and cardiology recs from that. Concern for sCHF, awaiting cardiology recs regarding lifevest initiation. Starting standard CHF meds. HR improved on Coreg, will continue to monitor. Wean from O2 as tolerated.
[2018-08-06] MEDS ORDERED: Sodium Chloride 0.9% 200 ML IV PRN (08:53)
[2018-08-06] MEDS ORDERED: Acetaminophen/Codeine 30-300mg Tablet PO PRN ×2 (08:53)
[2018-08-06] MEDS ORDERED: Nitroglycerin 0.4 MG TAB (25 Tab Bottle) SL PRN (08:53)
[2018-08-06] MEDS: Furosemide 40 MG TAB PO SCH (09:00)
[2018-08-06] MEDS: metFORMIN 500 MG TAB PO SCH (09:32)
[2018-08-06] MEDS: predniSONE 20 MG TAB PO SCH (09:35)
[2018-08-06] MEDS: FLUoxetine HCl 20 MG CAP PO SCH (09:35)
[2018-08-06] MEDS: Aspirin Chewable 81 MG TAB PO SCH (09:35)
[2018-08-06] MEDS ORDERED: Iopamidol 370 76% 100 ML VIAL ONE (10:48)
[2018-08-06] MEDS: HYDROcodone/Acetaminophen 5/325 mg Tablet PO PRN (11:38)
--- NOTE | 2018-08-07 06:25 | PDOC.CTH ---
Cardiology Progress Note - Objective Vital Signs Temp Pulse Resp BP BP Pulse Ox 08/07/18 03:15 98.3 F 121 H 14 128/70 92 L 08/07/18 00:24 85 14 92 L 08/06/18 21:36 141/72 H 08/06/18 20:13 93 L 08/06/18 19:56 97.6 F 77 16 141/66 H 93 L 08/06/18 18:49 81 14 96 Admit Weight 177 lb Weight 171 lb 11.2 oz 08/05/18 08/06/18 08/07/18 06:59 06:59 06:59 Intake Total 1900 1410 2382 Output Total 900 Balance 1900 1410 1482 - Physical Examination General/Neuro: NAD Neck: carotid US brisk, no JVD present Lungs: unlabored respirations Heart: RRR Abdomen: NT/ND, soft Extremities: + edema B - Labs Result Diagrams: 08/03/18 05:23 08/03/18 05:23 Troponin/CKMB Troponin I 0.035 ng/mL (< 0.028) H 08/02/18 13:09 - Assessment/Plan NICM Afib Tachycardia Pt with PAF Likely source of cardiomyopathy Consult with EP Stop IV CCB Increase po coreg on ACEI Home when HR stable Will need ACT Add amiodarone fu with EP
--- NOTE | 2018-08-07 07:01 | PDOC.FM ---
- Subjective Subjective: pt sleeping comfortably in bed denies SOB or CP - Objective Vital Signs & Weight: Vital Signs (12 hours) Temp Pulse Resp BP BP Pulse Ox 08/07/18 03:15 98.3 F 121 H 14 128/70 92 L 08/07/18 00:24 85 14 92 L 08/06/18 21:36 141/72 H 08/06/18 20:13 93 L 08/06/18 19:56 97.6 F 77 16 141/66 H 93 L Weight Admit Weight 80.286 kg Weight 77.882 kg Most Recent Monitor Data Heart Rate from ECG 125 NIBP 100/53 NIBP BP-Mean 68 Respiration from ECG 20 SpO2 95 I&O: 08/06/18 08/07/18 08/08/18 06:59 06:59 06:59 Intake Total 1410 2382 Output Total 900 Balance 1410 1482 Result Diagrams: 08/03/18 05:23 08/03/18 05:23 Phys Exam - Physical Examination Constitutional: NAD HEENT: moist MMs Neck: full ROM Gastrointestinal: no distention Musculoskeletal: pulses present Neurological: moves all 4 limbs Psychiatric: normal affect Skin: no rash Dx/Plan (1) Acute respiratory failure with hypoxia Code(s): J96.01 - ACUTE RESPIRATORY FAILURE WITH HYPOXIA Status: Acute (2) Elevated brain natriuretic peptide (BNP) level Code(s): R79.89 - OTHER SPECIFIED ABNORMAL FINDINGS OF BLOOD CHEMISTRY Status : Acute (3) Hypokalemia Code(s): E87.6 - HYPOKALEMIA Status: Acute (4) HTN (hypertension) Code(s): I10 - ESSENTIAL (PRIMARY) HYPERTENSION Status: Acute (5) DMII (diabetes mellitus, type 2) Status: Acute (6) Transaminitis Code(s): R74.0 - NONSPEC ELEV OF LEVELS OF TRANSAMNS & LACTIC ACID DEHYDRGNSE Status: Acute - Plan Plan: Acute hypoxic respiratory failure, resolved - tachycardia, tachypnea and hypoxia on presentation requiring BiPAP - normal WBC, afebrile, little concern for acute infection, most likely CHF exac w/ elevated bnp and cxr findings - Echo shows EF 25-30%, consider life vest - consult cardiology, appreciate recs - PO lasix qd Transaminitis - consider hepatic congestion 2/2 volume overload - Hepatitis panel neg and RUQ neg for cirrhosis - AST/ALT downtrending DMII - continue home meds - mild SSI Paroxysmal Atrial fibrillation - CTA neg, Echo reveals dilated atria - coreg TID - consider beginning NOAC today - EP consulted, appreciate recs Low TSH - normal T4, T3. unlikely clinical hyperthyroidism HTN - continue home meds - hydralazine for SBP>180 code: full PCP: [facility] ppx: [email or web address] Dispo: possible DC with improved HR control, follow up with EP/Cardio outpt Addendum - Attending - Attending Attestation Date/Time: 08/07/18 8824 I personally evaluated the patient and discussed the management with Dr. Bruno. I agree with the History, Examination, Assessment and Plan documented above with any addition or exceptions noted below. Patient here with non ischemic cardiomyopathy suspected 2/2 pAfib. She had recurrence of AF overnight, now on escalated dose of Coreg per cardiology. They recommend EP consult and awaiting Lifevest placement. Further mgmt per Cardiology but otherwise doing significantly better, off O2.
[2018-08-07] MEDS: Lisinopril 20 MG TAB PO SCH (09:29)
[2018-08-07] MEDS: Furosemide 40 MG TAB PO SCH (09:29)
[2018-08-07] MEDS: predniSONE 20 MG TAB PO SCH (09:29)
[2018-08-07] MEDS: metFORMIN 500 MG TAB PO SCH (09:29)
[2018-08-07] MEDS: FLUoxetine HCl 20 MG CAP PO SCH (09:29)
[2018-08-07] MEDS: Carvedilol 6.25 MG TAB PO SCH ×3 (09:30→19:21)
[2018-08-07] MEDS ORDERED: Apixaban 5 MG TAB PO SCH ×2 (10:15→21:00)
--- NOTE | 2018-08-07 11:08 | PDOC.CTH ---
Cardiology Progress Note - Subjective EP PROGRESS NOTE: 08/07/18 Seen as follow up for atrial arrhythmias and newly dx CMPY. Feels well this AM. No further SOB, LACEY. denies heart racing, palpitations, chest pain, dizziness, or passing out. Started on Eliquis. No obvious signs of bleeding issues so far. - Objective Vital Signs Temp Pulse Resp BP BP BP Pulse Ox 08/07/18 09:30 141/72 H 08/07/18 09:29 141/72 H 08/07/18 09:05 86 16 08/07/18 08:00 98 F 94 18 124/80 92 L 08/07/18 03:15 98.3 F 121 H 14 128/70 92 L 08/07/18 00:24 85 14 92 L Admit Weight 177 lb Weight 171 lb 11.2 oz 08/06/18 08/07/18 08/08/18 06:59 06:59 06:59 Intake Total 1410 2382 Output Total 900 Balance 1410 1482 - Physical Examination General/Neuro: alert & oriented x3, NAD Neck: carotid US brisk, no JVD present Lungs: CTA, unlabored respirations Heart: PMI normal, RRR Abdomen: NT/ND, soft - Telemetry Telemetry Rhythm: SR 70-80 with Paroxysmal A tach @ ~120 BPM - Labs Result Diagrams: 08/03/18 05:23 08/03/18 05:23 Troponin/CKMB Troponin I 0.035 ng/mL (< 0.028) H 08/02/18 13:09 - Assessment/Plan 1. Paroxysmal atrial arrhythmias - A Fib/ flutter - A. tach 120bpm - Amidoarone loading, transient therapy x 3-4 months during HF optimization - may need PVAI in future if recurrence is seen after amiodarone is stopped - 08/07: mostly NSR. PAT @120bpm seen which spontaneously converts to SR. No further AFib seen today. 2. NI Cardiomyopathy - newly dx, EF 25-30%, possibly tachycardia mediated. - nml coronaries by C - Lifevest - standard medical mgmt by cardiology - recheck EF 3 months after she is on optimal medical therapy to assess need for prophylactic ICD 3. NS-VT - beta blockers - will also be suppressed by amiodarone 4. Tobacco use - recommend cessation 4. CHADS2-VASC:5 - started on Eliquis mg PO BID Continue OAC and amiodarone. HF per cardiology. Continue amiodarone loading.
[2018-08-07 12:26] VITALS: TEMP 97.9
--- NOTE | 2018-08-07 12:35 | CON ---
DATE OF CONSULTATION: 08/06/2018 REASON FOR CONSULTATION: Atrial arrhythmias and newly diagnosed cardiomyopathy. HISTORY OF PRESENT ILLNESS: Ms. Candelaria is a pleasant 67-year-old woman with no significant prior cardiac history. She presented to an outpatient emergency room and was found to be in congestive heart failure with newly diagnosed atrial fibrillation with RVR. She was complaining of increasing dyspnea on exertion as well as lower extremity swelling x3 days prior to admission.She has been given Lasix with some improvement and underwent left heart catheterization with Dr. Palmer on 08/02/2018, that was not significant for any severe coronary artery disease. An echocardiogram was also performed on 08/02 revealing a severely reduced ejection fraction of 25% to 30%. This is newly found. There is also [id number] mitral regurgitation. Left ventricular size is moderately increased. The left atrium was severely dilated. Right atrium is normal size. On telemetry, she has also been seen to have atrial arrhythmias initially atrial fibrillation and atypical atrial flutter with RVR on occasion. Later had focal atrial tachycardia runs. Currently, Ms. Candelaria is feeling well. She denies any heart racing, palpitations , chest pain, pressure, syncope, near syncope, stroke, or stroke-like symptoms. Her shortness of breath and swelling of the extremities are significantly improved since diuresing and started upon admission. REVIEW OF SYSTEMS: A 12-point review of systems is conducted, is negative except that listed above in the HPI. PAST MEDICAL HISTORY: Hypertension and type 2 diabetes. Possible diagnosis of COPD. Denies any inhalers or treatment for this at home. PAST SURGICAL HISTORY: Ovarian resection and associated hernia. FAMILY HISTORY: Noncontributory. SOCIAL HISTORY: Fourty-pack year history of smoking. Occasional alcohol. Denies illicit drug use. HOME MEDICATIONS: Include: 1. Nortriptyline two capsules p.o. at bedtime. 2. Cinnamon supplement daily. 3. [place] 10/325 two tablets p.o. q.6 hours p.r.n. 4. Metoprolol tartrate 12.5 mg p.o. b.i.d. 5. Aspirin 81 mg daily. 6. Metformin 500 mg p.o. q.a.m. 7. Lisinopril 20 mg p.o. daily. 8. Fluoxetine 40 mg p.o. daily. PHYSICAL EXAMINATION: VITAL SIGNS: Temperature 97.6 degrees Fahrenheit, pulse 85, blood pressure is 107/58, respirations 17, and oxygen is 95% on room air. GENERAL: The patient is alert and oriented. Speech is clear. Affect is appropriate. NECK: Supple without jugular venous distention. HEART: Rate is currently regularly regular with crisp S1 and S2. PMI is nondisplaced. LUNGS: Clear to auscultation. ABDOMEN: Soft and nontender without palpable masses. EXTREMITIES: Warm and dry to touch without clubbing or cyanosis. There is trace bilateral lower extremity edema seen. NEUROLOGIC: Grossly intact and nonfocal. Gait was not assessed. DATABASE: Hematology was reviewed and is unremarkable from 08/03/2018. Chemistry on 08/03/2018 reveals potassium 3.8, creatinine 0.67. AST 48, ALT 121, troponin 0.035. TSH is 0.2886. Echocardiogram on 08/02/2018, LV size moderately increased, ejection fraction 25 % to 30%. Left atrium severely dilated. [id number] MR. PA systolic pressure mild to moderately elevated at 41 mmHg. Normal right atrium size. No significant aortic valvular disease. Left heart catheterization on 08/02/2018, report not available, though I spoke with Dr. Palmer, who has had normal coronary arteries. No PCI was indicated. Telemetry and EKGs all were personally reviewed and reflect paroxysmal atrial fibrillation/atrial flutter in addition to atrial tachycardia with occasional RVR, otherwise normal sinus rhythm. IMPRESSION: 1. Paroxysmal atrial fibrillation/atrial flutter and atrial tachycardia with rapid ventricular response, newly diagnosed. 2. Newly diagnosed acute systolic congestive heart failure. 3. Normal coronary arteries by left heart catheterization. 4. History of chronic obstructive pulmonary disease and current smoking. 5. Diabetes. 6. Depression. 7. Nonsustained ventricular tachycardia. 8. CHADS-VASc score of 5 on the basis of female gender, heart failure, hypertension, diabetes, and vascular disease. Oral anticoagulation is indicated. PLAN AND RECOMMENDATIONS: 1. Consider short-term amiodarone for suppression of her atrial arrhythmias. It is possible that her tachycardia is contributed to the development of cardiomyopathy. During this time where her heart failure is optimized and she is in re- evaluation 3-month window, it is recommended to suppress her atrial arrhythmias to help optimize her heart failure management. 2. Recommend standard heart failure management per Cardiology. 3. Oral anticoagulation is indicated given her CHADS-VASc score of 5. Recommend starting Eliquis 5 mg p.o. b.i.d. 4. Recommend LifeVest while her heart failure is being medically optimized and recheck an echocardiogram 3 months after she is achieved optimal medical management for the possibility of prophylactic ICD. 5. Regarding her atrial arrhythmias, she will likely require an outpatient PVI once she is clinically optimized. We will follow her in clinic and at some point likely, we will discontinue her amiodarone to assess for recurrent arrhythmias once her heart failure has stabilized. 6. Highly encouraged smoking cessation. Thank you for allowing us to participate in the care of this patient. Job ID: [id number] TAMI
[2018-08-07 14:47] VITALS: BP 101/65
--- NOTE | 2018-08-07 15:26 | PRG ---
DATE OF SERVICE: 08/07/2018 SERVICE: Pulmonary Medicine. INTERVAL HISTORY: The patient is doing fine from respiratory standpoint. Actually, she is breathing quite well. Unfortunately, starting this morning, she has had over seven bowel movements. They were pure liquid. Otherwise, there has been no interval change to her condition. She is thinking that it could very well be a side effect from a new medication. PHYSICAL EXAMINATION: VITAL SIGNS: Afebrile. Pulse 90, blood pressure 136/72, respirations 16, saturation 93% on room air. GENERAL: The patient is awake and alert, in no apparent distress. LUNGS: Decent air entry. Not much of a prolonged expiratory phase or wheezing is appreciated. HEART: Normal rate and regular. ABDOMEN: Soft, nontender, nondistended. Bowel sounds are positive. MUSCULOSKELETAL: No cyanosis or clubbing. No pitting in the bilateral lower extremities. NEUROLOGIC: Grossly nonfocal. LABORATORY DATA: Blood sugar ranges from 119 to 203. Urinalysis is unremarkable. Respiratory virus panel is negative. ASSESSMENT: 1. Acute hypoxic respiratory failure, resolved. 2. Acute systolic heart failure, not flow-limiting disease. 3. Severe mitral regurgitation. 4. Chronic obstructive pulmonary disease, suspected. 5. Diarrhea, new onset. DISCUSSION AND PLAN: The patient is stable for transition out of the hospital at this point. That being said, I would like to prove that she is not having a complication like Clostridium difficile. We will get a C diff antigen and toxin. I will also get a stool lactoferrin. If these are unremarkable, she can likely still go home today, but perhaps with Imodium. Pulmonary will continue to follow, intermittently while the patient remains inhouse. If she gets any respiratory difficulties over the weekend, please notify Dr. Botello. Job ID: [id number] [facility]
--- NOTE | 2018-08-08 05:09 | DIS ---
DATE OF ADMISSION: 08/02/2018 DATE OF DISCHARGE: 08/07/2018 RESIDENT: Burton Bruno DO CONSULTS: 1. Cardiology, Dr. William Palmer. 2. Electrophysiology, Dr. Chirag Prajapati. 3. Pulmonology, Dr. Liam Vyas. PROCEDURES: Left heart catheterization showing no coronary artery blockage. IMAGING: Echocardiogram significant for left ventricular ejection fraction of 25% to 30%. Chest, thorax CTA significant for no evidence of pulmonary embolus. Abdominal ultrasound within normal limits. DISCHARGE MEDICATIONS: 1. [place] 10/325 two tabs p.o. q.6 hours p.r.n. 2. Prozac 40 mg p.o. daily. 3. Lisinopril 20 mg p.o. daily. 4. Metformin 500 mg p.o. q.a.m. 5. Aspirin 81 mg p.o. daily. 6. Nortriptyline 25 mg p.o. at bedtime. 7. Amiodarone 400 mg p.o. daily. 8. Eliquis 5 mg p.o. b.i.d. 9. Coreg 12.5 mg p.o. t.i.d. 10. Lasix 40 mg p.o. at 0900 hours. PRIMARY DIAGNOSES: 1. Acute hypoxic respiratory failure, resolved. 2. Heart failure with reduced ejection fraction. 3. Paroxysmal atrial fibrillation. SECONDARY DIAGNOSES: 1. Transaminitis. 2. Diabetes mellitus type 2. 3. Low TSH. 4. Hypertension. HISTORY OF PRESENT ILLNESS/HOSPITAL COURSE: Ms. Candelaria is a 67-year-old female who originally presents as transfer from an outside hospital for worsening dyspnea and hypoxia, placed on BiPAP at outside hospital. Upon arrival to our emergency room, the patient was hypoxic and tachycardic. CTA of chest was negative. It was ordered to rule out PE that was negative. The patient was admitted to [facility] for respiratory/ventilatory support. Initial EKG in the ER showed sinus tachycardia. The patient's hypoxic respiratory demand quickly resolved. The patient was transitioned to room air and intermittently required nasal cannula with Lasix diuretic. The patient diuresed well. An echocardiogram was obtained and the patient was found to have heart failure with reduced ejection fraction. Cardiology was consulted at that point, recommended catheterization. Catheterization was performed with no blockages noted. The patient was found throughout her hospitalization to have paroxysmal atrial fibrillation, most likely causing cardiomyopathy and subsequent heart failure. The patient's medications were optimized and heart rate was brought under control. The patient was placed on anticoagulation therapy and instructed to have close followup with Cardiology. Deemed stable for discharge home with stable vital signs, ambulating, tolerating p.o. well. DISCHARGE INSTRUCTIONS: Location: Home. Activity: As tolerated. Diet: Heart healthy, low-sodium, diabetic. Followup: Follow up with PCP in the next [address] Prajapati, Electrophysiology in the next 4-6 weeks, and Dr. Palmer, Cardiology in the next 2 weeks. Job ID: [id number]
[2018-08-08] MEDS ORDERED: Amiodarone 200 MG TAB PO SCH (09:00)
== END 2018-08-07 19:36 | disposition home or self-care (01) | DRG 286 ==
LOC: ERS 06:43 → IMCU/EMU 11:04 → 2NO 08-03 11:36
PROVIDERS: ADMIT Family Medicine; ATTEND Family Medicine
PROC: 4A023N7 Measurement of Cardiac Sampling and Pressure, Left Heart, Percutaneous Approach (ICD-10-PCS; principal; 2018-08-06)
PROC: B2111ZZ Fluoroscopy of Multiple Coronary Arteries using Low Osmolar Contrast (ICD-10-PCS; 2018-08-06)
PROC: B2151ZZ Fluoroscopy of Left Heart using Low Osmolar Contrast (ICD-10-PCS; 2018-08-06)
DX: I11.0 Hypertensive heart disease with heart failure (principal); J96.21 Acute and chronic respiratory failure with hypoxia; I50.21 Acute systolic (congestive) heart failure; J44.1 Chronic obstructive pulmonary disease with (acute) exacerbation; I47.1 Supraventricular tachycardia; E03.9 Hypothyroidism, unspecified; F32.9 Major depressive disorder, single episode, unspecified; E11.9 Type 2 diabetes mellitus without complications; I48.0 Paroxysmal atrial fibrillation; E87.6 Hypokalemia; J20.9 Acute bronchitis, unspecified; F17.210 Nicotine dependence, cigarettes, uncomplicated; I42.8 Other cardiomyopathies; Z88.8 Allergy status to other drugs, medicaments and biological substances; Z79.82 Long term (current) use of aspirin; Z79.84 Long term (current) use of oral hypoglycemic drugs; Z79.899 Other long term (current) drug therapy; R19.7 Diarrhea, unspecified
CPT/HCPCS: 36415; 36416; 71275; 76705; 76942; 80053; 80306; 81003; 82805; 83630; 84439; 84443; 84481; 85025; 85610; 86803; 87324; 87340; 87449; 87633; 93005; 93010; 93306; 93458; 93798; 94640; 94660; 94760; 96374; C1769; J1160; J1644; J1650; J1940; J2250; J2405; J3010; J3490; J7512; J7620; Q9966; Q9967